=== PATIENT | male | born 1950 | race Caucasian/White ===

== ENCOUNTER 2020-10-05 20:22 | Emergency (ER) | payer MEDICARE ==
[2020-10-05 20:54] LABS: Bacteria/HPF None Seen HPF (None Seen); Bilirubin Negative (Negative); Blood, Urine Negative (Negative); Clarity Clear (Clear); Glucose, Urine (Dipstick) Normal (Negative); Ketone, Urine Negative (Negative); Leukocyte Negative Leu/uL (Negative); Nitrite Negative (Negative); Protein, Urine (Dipstick) 30 mg/dL (Neg-Trace); RBC/HPF 0-3 HPF (0-3); Squamous Epithelial None Seen HPF (0-3); Urobilinogen Normal mg/dL (Less than 2); WBC/HPF 0-3 HPF (0-3)
[2020-10-05] MEDS ORDERED: Acetaminophen 500 MG TAB ONE (21:41)
[2020-10-05 22:33] LABS: #Basophils 0.1 thou/uL (0.0-0.2); #Eosinphils 0.1 thou/uL (0.0-0.7); #Lymphocytes 0.8 thou/uL (1.20-3.40); #Monocytes 0.4 thou/uL (0.11-0.59); #Neutrophils 4.9 thou/uL (1.40-6.50); %Basophils 1.3 % (0.0-1.0); %Lymphocytes 12.8 % (21.0-51.0); %Monocytes 6.5 % (0.0-10.0); %Neutrophils 77.5 % (42.0-75.0); Hemoglobin 8.7 g/dL (14.0-18.0); Mean Corpuscular HGB CONC 35.5 g/dL (32.0-36.0); Mean Corpuscular Hemoglobin 31.4 pg (27.0-31.0); Mean Corpuscular Volume 88.6 fL (78.0-98.0); Mean Platelet Volume 9.5 fL (7.4-10.4); Platelet Count 141 thou/uL (130-400); RBC Distribution Width 21.1 % (11.5-14.5); Red Blood Cell (RBC) Count 2.78 mill/uL (4.70-6.10); White Blood Cell (WBC) Count 6.3 thou/uL (4.8-10.8)
[2020-10-05 22:37] LABS: ALT (SGPT) 38 U/L (8-55); AST (SGOT) 73 U/L (5-34); Albumin 4.3 g/dL (3.4-4.8); Alkaline Phosphatase 58 U/L (40-110); Anion Gap 14 mmol/L (10-20); BUN (Urea Nitrogen) 21 mg/dL (8.4-25.7); Bilirubin, Total 1.1 mg/dL (0.2-1.2); Calc. Creatinine Clearance 0 mL/min (70-130); Calcium 9.4 mg/dL (7.8-10.44); Carbon Dioxide 27 mmol/L (23-31); Chloride 99 mmol/L (98-107); Glucose 195 mg/dL (80-115); Potassium 4.6 mmol/L (3.5-5.1); Protein, Total 7.3 g/dL (5.8-8.1); Sodium 135 mmol/L (136-145)
[2020-10-05 23:19] LABS: SARS-CoV-2 NAA Rapid Test Not Detected (NotDetected)
[2020-10-05] MEDS ORDERED: Benzonatate 100 MG CAP ONE (23:30)
== END 2020-10-05 23:36 | disposition home or self-care (01) ==
LOC: ERS 20:22
DX: R50.9 Fever, unspecified (principal); R05 Cough; I10 Essential (primary) hypertension; D75.81 Myelofibrosis; E78.5 Hyperlipidemia, unspecified; E11.9 Type 2 diabetes mellitus without complications; Z86.16 Personal history of COVID-19
CPT/HCPCS: 0240U; 71045; 80053; 83605; 85025; 87040; 87086; 93005; 36415; 81003; 81015

== ENCOUNTER 2020-11-03 12:32 | Inpatient (IN) | payer MEDICARE ==
[2020-11-03 13:27] LABS: Mean Corpuscular HGB CONC 33.1 g/dL (32.0-36.0); Mean Corpuscular Hemoglobin 29.2 pg (27.0-31.0); Mean Corpuscular Volume 88.5 fL (78.0-98.0); Mean Platelet Volume 8.1 fL (7.4-10.4); Platelet Count 248 thou/uL (130-400); RBC Distribution Width 20.5 % (11.5-14.5); Red Blood Cell (RBC) Count 2.06 mill/uL (4.70-6.10)
[2020-11-03 13:45] LABS: Anisocytosis MODERATE=16-30 cells (100X) (0-5/hpf); Band 8 % (5-11); Eosinophils 2 % (0-10); Lymphocytes 6 % (21-51); MDiff Complete? YES; Metamyelocyte 2 % (0-0); Monocytes 3 % (0-10); Myelocyte 1 % (0-0); Neutrophil 75 % (42-75); Nucleated RBC 8 % (0); Ovalocytes SLIGHT = 2-5 cells (100X) (0-1/hpf); Platelet Morphology Comment Appears Adequate; Poikilocytosis SLIGHT = 6-15 cells (100X) (0-5/hpf); Polychromasia MODERATE = 3-4 cells (100X) (0-2/hpf); Schistocytes SLIGHT = 2-5 cells (100X) (0-1/hpf); Tear Drops SLIGHT = 2-5 cells (100X) (0-1/hpf); White Blood Cell (WBC) Count 6.2 thou/uL (4.8-10.8)
[2020-11-03 13:47] LABS: ALT (SGPT) 34 U/L (8-55); AST (SGOT) 63 U/L (5-34); Albumin 3.4 g/dL (3.4-4.8); Alkaline Phosphatase 58 U/L (40-110); Anion Gap 14 mmol/L (10-20); BUN (Urea Nitrogen) 17 mg/dL (8.4-25.7); Bilirubin, Total 0.9 mg/dL (0.2-1.2); Calc. Creatinine Clearance 0 mL/min (70-130); Calcium 8.8 mg/dL (7.8-10.44); Carbon Dioxide 23 mmol/L (23-31); Chloride 104 mmol/L (98-107); Globulin 2.9 g/dL (2.4-3.5); Glucose 210 mg/dL (80-115); Protein, Total 6.3 g/dL (5.8-8.1); Sodium 137 mmol/L (136-145)
[2020-11-03] MEDS ORDERED: Cefepime 2 GM VIAL ONE (14:41)
[2020-11-03] MEDS ORDERED: VANCOMYCIN 2 GRAM/400 ML BAG 2 GM in Premix Bag 1 BAG IVPB SCH (14:45)
[2020-11-03 14:50] LABS: SARS-CoV-2 NAA Rapid Test Not Detected (NotDetected)
[2020-11-03] MEDS ORDERED: Furosemide 100 MG/10 ML VIAL SLOW IVP SCH (15:45)
[2020-11-03 16:37] LABS: INR-International Normal Ratio 1.3; PTT 40.1 sec (22.9-36.1)
[2020-11-03] MEDS ORDERED: Acetaminophen 325 MG TAB ONE (16:39)
[2020-11-03 16:46] LABS: Iron 35 ug/dL (65-175); Iron Binding Capacity, Total 205 mcg/dL (261-462); Transferrin, Serum 164 mg/dL (163-344)
[2020-11-03 17:11] LABS: Ferritin 185.91 ng/mL (22-322)
[2020-11-03] MEDS ORDERED: Acetaminophen 325 MG TAB PO PRN (17:48)
[2020-11-03] MEDS ORDERED: Acetaminophen 650 MG Suppository PR PRN (17:48)
[2020-11-03] MEDS ORDERED: Ondansetron ODT 4 MG TAB PO PRN (17:48)
[2020-11-03] MEDS ORDERED: HumaLOG 300 UNITS/3 ML VIAL SC PRN (17:48)
[2020-11-03] MEDS ORDERED: Ondansetron PF 4 MG/2 ML Vial IVP PRN (17:48)
[2020-11-03] MEDS ORDERED: Bisacodyl 5 MG TAB PO PRN (17:48)
[2020-11-03] MEDS ORDERED: Dextrose 5% in Water 1,000 ML IV PRN (17:48)
[2020-11-03] MEDS ORDERED: Calcium Carbonate 500 MG ChewTAB PO PRN (17:48)
[2020-11-03] MEDS ORDERED: Senokot S 8.6-50 MG TAB PO PRN (17:48)
[2020-11-03] MEDS ORDERED: Bisacodyl 10 MG SUPP PR PRN (17:48)
[2020-11-03] MEDS ORDERED: Dextrose 50% Abboject 50 ML SYRINGE SLOW IVP PRN (17:48)
[2020-11-03 19:20] LABS: Legionella Urinary Ag Negative (Negative)
[2020-11-03 19:27] LABS: Strep pneumo Urine Ag NEGATIVE (NEGATIVE)
[2020-11-03 19:42] VITALS: BMI 32.1
[2020-11-03] MEDS: glipiZIDE 10 MG TAB PO SCH (20:08)
[2020-11-03] MEDS: hydrALAZINE 25 MG TAB PO SCH (20:08)
[2020-11-03] MEDS: Gabapentin 400 MG CAP PO SCH (20:09)
[2020-11-03] MEDS: Atorvastatin Calcium 20 MG TAB PO SCH (20:09)
[2020-11-03] MEDS: Carvedilol 25 MG TAB PO SCH (20:09)
[2020-11-03] MEDS ORDERED: Furosemide 40 MG/4 ML VIAL SLOW IVP SCH ×2 (20:30→23:30)
[2020-11-03] MEDS: Cefepime 2 GM in Sodium Chloride 0.9% 100 ML IVPB SCH (21:32)
[2020-11-03] MEDS: guaiFENesin 200 MG TAB PO PRN (23:23)
[2020-11-04] MEDS: Cefepime 2 GM in Sodium Chloride 0.9% 100 ML IVPB SCH ×3 (05:04→22:05)
[2020-11-04] MEDS: HumaLOG 300 UNITS/3 ML VIAL SC PRN ×2 (05:07→18:05)
[2020-11-04] MEDS: guaiFENesin 200 MG TAB PO PRN ×2 (05:08→15:32)
[2020-11-04 06:04] LABS: Band 14 % (5-11); Eosinophils 1 % (0-10); Hypochromia SLIGHT = 6-15 cells (100X) (0-5/hpf); Lymphocytes 8 % (21-51); MDiff Complete? YES; Mean Corpuscular HGB CONC 33.9 g/dL (32.0-36.0); Mean Corpuscular Hemoglobin 29.7 pg (27.0-31.0); Mean Corpuscular Volume 87.5 fL (78.0-98.0); Mean Platelet Volume 8.3 fL (7.4-10.4); Monocytes 5 % (0-10); Neutrophil 71 % (42-75); Nucleated RBC 1 % (0); Platelet Count 225 thou/uL (130-400); Platelet Morphology Comment Appears Adequate; RBC Distribution Width 18.4 % (11.5-14.5); Reactive Lymphocytes 1 % (0-10); Red Blood Cell (RBC) Count 2.34 mill/uL (4.70-6.10); White Blood Cell (WBC) Count 6.1 thou/uL (4.8-10.8)
[2020-11-04 06:18] LABS: Anion Gap 13 mmol/L (10-20); BUN (Urea Nitrogen) 17 mg/dL (8.4-25.7); Calc. Creatinine Clearance 88 mL/min (70-130); Calcium 8.8 mg/dL (7.8-10.44); Carbon Dioxide 23 mmol/L (23-31); Chloride 103 mmol/L (98-107); Glucose 143 mg/dL (80-115); Potassium 3.6 mmol/L (3.5-5.1); Sodium 135 mmol/L (136-145)
[2020-11-04] MEDS: hydrALAZINE 25 MG TAB PO SCH ×2 (08:47→20:15)
[2020-11-04] MEDS: metFORMIN 500 MG TAB PO SCH ×2 (08:47→17:18)
[2020-11-04] MEDS: glipiZIDE 10 MG TAB PO SCH ×2 (08:48→20:14)
[2020-11-04] MEDS: Furosemide 40 MG TAB PO SCH (08:48)
[2020-11-04] MEDS: FLUoxetine HCl 20 MG CAP PO SCH (08:48)
[2020-11-04] MEDS: Lisinopril 20 MG TAB PO SCH (08:48)
[2020-11-04] MEDS: Mirtazapine 15 MG TAB PO SCH (08:49)
[2020-11-04] MEDS: Gabapentin 400 MG CAP PO SCH ×3 (08:49→20:14)
[2020-11-04] MEDS: Aripiprazole 15 MG TAB PO SCH (08:51)
[2020-11-04] MEDS: Carvedilol 25 MG TAB PO SCH ×2 (08:51→20:15)
[2020-11-04] MEDS: Cyproheptadine 4 MG TAB PO SCH (08:51)
[2020-11-04] MEDS: Amlodipine 5 MG TAB PO SCH (08:52)
[2020-11-04] MEDS: Enoxaparin Sodium 40 MG/0.4 ML SYRINGE SC SCH (10:35)
[2020-11-04 12:13] LABS: Glucose 142 mg/dL (80-115)
[2020-11-04 17:16] LABS: Glucose 169 mg/dL (80-115)
[2020-11-04] MEDS: Atorvastatin Calcium 20 MG TAB PO SCH (20:15)
[2020-11-04 21:13] LABS: Glucose 143 mg/dL (80-115)
[2020-11-05] MEDS: Cefepime 2 GM in Sodium Chloride 0.9% 100 ML IVPB SCH ×3 (05:15→20:30)
[2020-11-05 06:39] LABS: #Basophils 0.1 thou/uL (0.0-0.2); #Eosinphils 0.2 thou/uL (0.0-0.7); #Lymphocytes 0.8 thou/uL (1.20-3.40); #Monocytes 0.3 thou/uL (0.11-0.59); #Neutrophils 5.4 thou/uL (1.40-6.50); %Basophils 1.3 % (0.0-1.0); %Eosinophils 2.4 % (0.0-10.0); %Lymphocytes 11.5 % (21.0-51.0); %Monocytes 4.1 % (0.0-10.0); %Neutrophils 80.7 % (42.0-75.0); Mean Corpuscular HGB CONC 34.4 g/dL (32.0-36.0); Mean Corpuscular Volume 89.9 fL (78.0-98.0); Mean Platelet Volume 7.9 fL (7.4-10.4); Platelet Count 234 thou/uL (130-400); RBC Distribution Width 18.7 % (11.5-14.5); Red Blood Cell (RBC) Count 2.27 mill/uL (4.70-6.10); White Blood Cell (WBC) Count 6.7 thou/uL (4.8-10.8)
[2020-11-05 07:53] LABS: Glucose 123 mg/dL (80-115)
[2020-11-05] MEDS: glipiZIDE 10 MG TAB PO SCH ×2 (08:44→20:29)
[2020-11-05] MEDS: Gabapentin 400 MG CAP PO SCH ×3 (08:44→20:29)
[2020-11-05] MEDS: FLUoxetine HCl 20 MG CAP PO SCH (08:44)
[2020-11-05] MEDS: hydrALAZINE 25 MG TAB PO SCH ×2 (08:45→20:29)
[2020-11-05] MEDS: Mirtazapine 15 MG TAB PO SCH (08:45)
[2020-11-05] MEDS: Furosemide 40 MG TAB PO SCH (08:45)
[2020-11-05] MEDS: Lisinopril 20 MG TAB PO SCH (08:45)
[2020-11-05] MEDS: Amlodipine 5 MG TAB PO SCH (08:45)
[2020-11-05] MEDS: metFORMIN 500 MG TAB PO SCH ×2 (08:45→18:00)
[2020-11-05] MEDS: Carvedilol 25 MG TAB PO SCH ×2 (08:46→20:29)
[2020-11-05] MEDS: Aripiprazole 15 MG TAB PO SCH (08:46)
[2020-11-05] MEDS: Enoxaparin Sodium 40 MG/0.4 ML SYRINGE SC SCH (08:46)
[2020-11-05] MEDS: Cyproheptadine 4 MG TAB PO SCH (08:46)
[2020-11-05 12:12] LABS: Glucose 168 mg/dL (80-115)
[2020-11-05] MEDS: Guaifenesin DM 100-10/5 ML UDCUP PO PRN (12:19)
[2020-11-05] MEDS: HumaLOG 300 UNITS/3 ML VIAL SC PRN ×2 (12:20→18:03)
[2020-11-05 17:50] LABS: Glucose 161 mg/dL (80-115)
[2020-11-05] MEDS: Atorvastatin Calcium 20 MG TAB PO SCH (20:29)
[2020-11-05 21:47] LABS: Glucose 134 mg/dL (80-115)
[2020-11-06] MEDS: Cefepime 2 GM in Sodium Chloride 0.9% 100 ML IVPB SCH ×3 (04:58→22:57)
[2020-11-06 07:42] LABS: Glucose 136 mg/dL (80-115)
[2020-11-06] MEDS: Aripiprazole 15 MG TAB PO SCH (08:09)
[2020-11-06] MEDS: Cyproheptadine 4 MG TAB PO SCH (08:09)
[2020-11-06] MEDS: Gabapentin 400 MG CAP PO SCH ×3 (08:11→20:03)
[2020-11-06] MEDS: metFORMIN 500 MG TAB PO SCH ×2 (08:12→17:53)
[2020-11-06] MEDS: glipiZIDE 10 MG TAB PO SCH ×2 (08:12→20:04)
[2020-11-06] MEDS: Furosemide 40 MG TAB PO SCH (08:13)
[2020-11-06] MEDS: Carvedilol 25 MG TAB PO SCH ×2 (08:13→20:04)
[2020-11-06] MEDS: Lisinopril 20 MG TAB PO SCH (08:13)
[2020-11-06] MEDS: hydrALAZINE 25 MG TAB PO SCH ×2 (08:14→20:03)
[2020-11-06] MEDS: Amlodipine 5 MG TAB PO SCH (08:16)
[2020-11-06] MEDS: FLUoxetine HCl 20 MG CAP PO SCH (08:16)
[2020-11-06] MEDS: Mirtazapine 15 MG TAB PO SCH (08:17)
[2020-11-06] MEDS: Enoxaparin Sodium 40 MG/0.4 ML SYRINGE SC SCH (08:19)
[2020-11-06] MEDS: Guaifenesin DM 100-10/5 ML UDCUP PO PRN (10:06)
[2020-11-06] MEDS: Guaifenesin DM 100-10/5 ML UDCUP PO SCH ×4 (10:31→22:58)
[2020-11-06 15:38] LABS: Folate,Hemolysate >620.0 ng/mL (Not Estab.); Hematocrit 18.8 % (37.5-51.0); RBC Folate Test Component Greater than 3298 ng/mL (>498)
[2020-11-06] MEDS: Atorvastatin Calcium 20 MG TAB PO SCH (20:04)
[2020-11-07] MEDS: Guaifenesin DM 100-10/5 ML UDCUP PO SCH ×6 (02:19→23:32)
[2020-11-07] MEDS: Cefepime 2 GM in Sodium Chloride 0.9% 100 ML IVPB SCH (05:50)
[2020-11-07 06:17] LABS: #Basophils 0.1 thou/uL (0.0-0.2); #Eosinphils 0.2 thou/uL (0.0-0.7); #Lymphocytes 0.7 thou/uL (1.20-3.40); #Monocytes 0.2 thou/uL (0.11-0.59); #Neutrophils 3.9 thou/uL (1.40-6.50); %Basophils 1.4 % (0.0-1.0); %Eosinophils 4.3 % (0.0-10.0); %Lymphocytes 13.4 % (21.0-51.0); %Monocytes 3.2 % (0.0-10.0); %Neutrophils 77.6 % (42.0-75.0); Hemoglobin 6.3 g/dL (14.0-18.0); Mean Corpuscular HGB CONC 33.3 g/dL (32.0-36.0); Mean Corpuscular Hemoglobin 29.6 pg (27.0-31.0); Mean Corpuscular Volume 89.1 fL (78.0-98.0); Mean Platelet Volume 8.6 fL (7.4-10.4); Platelet Count 190 thou/uL (130-400); RBC Distribution Width 18.7 % (11.5-14.5); Red Blood Cell (RBC) Count 2.12 mill/uL (4.70-6.10)
[2020-11-07] MEDS: FLUoxetine HCl 20 MG CAP PO SCH (08:54)
[2020-11-07] MEDS: Carvedilol 25 MG TAB PO SCH ×2 (08:54→20:23)
[2020-11-07] MEDS: hydrALAZINE 25 MG TAB PO SCH ×2 (08:54→20:22)
[2020-11-07] MEDS: glipiZIDE 10 MG TAB PO SCH ×2 (08:54→20:24)
[2020-11-07] MEDS: Aripiprazole 15 MG TAB PO SCH (08:55)
[2020-11-07] MEDS: Gabapentin 400 MG CAP PO SCH ×3 (08:57→20:24)
[2020-11-07] MEDS: metFORMIN 500 MG TAB PO SCH ×2 (08:58→17:09)
[2020-11-07] MEDS: Furosemide 40 MG TAB PO SCH (08:58)
[2020-11-07] MEDS: Lisinopril 20 MG TAB PO SCH (08:58)
[2020-11-07] MEDS: Mirtazapine 15 MG TAB PO SCH (08:59)
[2020-11-07] MEDS: Cyproheptadine 4 MG TAB PO SCH (08:59)
[2020-11-07] MEDS: Amlodipine 5 MG TAB PO SCH (08:59)
[2020-11-07] MEDS ORDERED: predniSONE 20 MG TAB PO SCH (10:00)
[2020-11-07] MEDS: Enoxaparin Sodium 40 MG/0.4 ML SYRINGE SC SCH (10:53)
[2020-11-07] MEDS: Atorvastatin Calcium 20 MG TAB PO SCH (20:23)
[2020-11-08] MEDS: Guaifenesin DM 100-10/5 ML UDCUP PO SCH ×4 (03:30→15:22)
[2020-11-08] MEDS: HumaLOG 300 UNITS/3 ML VIAL SC PRN (05:34)
[2020-11-08 05:59] LABS: #Basophils 0.1 thou/uL (0.0-0.2); #Eosinphils 0.1 thou/uL (0.0-0.7); #Lymphocytes 0.5 thou/uL (1.20-3.40); #Monocytes 0.2 thou/uL (0.11-0.59); #Neutrophils 4.7 thou/uL (1.40-6.50); %Basophils 1.4 % (0.0-1.0); %Eosinophils 1.9 % (0.0-10.0); %Lymphocytes 8.1 % (21.0-51.0); %Neutrophils 84.6 % (42.0-75.0); Hemoglobin 7.8 g/dL (14.0-18.0); Mean Corpuscular HGB CONC 34.1 g/dL (32.0-36.0); Mean Corpuscular Hemoglobin 30.7 pg (27.0-31.0); Mean Platelet Volume 8.4 fL (7.4-10.4); Platelet Count 214 thou/uL (130-400); RBC Distribution Width 17.8 % (11.5-14.5); Red Blood Cell (RBC) Count 2.54 mill/uL (4.70-6.10); White Blood Cell (WBC) Count 5.6 thou/uL (4.8-10.8)
[2020-11-08 06:09] LABS: Anion Gap 11 mmol/L (10-20); BUN (Urea Nitrogen) 25 mg/dL (8.4-25.7); Calc. Creatinine Clearance 94 mL/min (70-130); Calcium 8.8 mg/dL (7.8-10.44); Carbon Dioxide 25 mmol/L (23-31); Chloride 106 mmol/L (98-107); Glucose 155 mg/dL (80-115); Potassium 3.8 mmol/L (3.5-5.1); Sodium 138 mmol/L (136-145)
[2020-11-08] MEDS ORDERED: predniSONE 20 MG TAB PO SCH (08:00)
[2020-11-08] MEDS: Enoxaparin Sodium 40 MG/0.4 ML SYRINGE SC SCH (08:16)
[2020-11-08] MEDS: hydrALAZINE 25 MG TAB PO SCH (08:17)
[2020-11-08] MEDS: Aripiprazole 15 MG TAB PO SCH (08:17)
[2020-11-08] MEDS: Cyproheptadine 4 MG TAB PO SCH (08:18)
[2020-11-08] MEDS: metFORMIN 500 MG TAB PO SCH (08:18)
[2020-11-08] MEDS: Lisinopril 20 MG TAB PO SCH (08:18)
[2020-11-08] MEDS: FLUoxetine HCl 20 MG CAP PO SCH (08:19)
[2020-11-08] MEDS: Gabapentin 400 MG CAP PO SCH ×2 (08:19→15:22)
[2020-11-08] MEDS: Mirtazapine 15 MG TAB PO SCH (08:20)
[2020-11-08] MEDS: glipiZIDE 10 MG TAB PO SCH (08:21)
[2020-11-08] MEDS: Amlodipine 5 MG TAB PO SCH (08:21)
[2020-11-08] MEDS: Carvedilol 25 MG TAB PO SCH (08:21)
[2020-11-08] MEDS: Furosemide 40 MG TAB PO SCH (08:21)
[2020-11-08 16:50] VITALS: BP 139/56; TEMP 97.9
== END 2020-11-08 15:29 | disposition home or self-care (01) | DRG 193 ==
LOC: ERS 12:32 → T4-A 14:36
PROVIDERS: ADMIT Family Medicine; ATTEND Family Medicine
PROC: 30233N1 Transfusion of Nonautologous Red Blood Cells into Peripheral Vein, Percutaneous Approach (ICD-10-PCS; principal; 2020-11-03)
PROC: 5A09357 Assistance with Respiratory Ventilation, Less than 24 Consecutive Hours, Continuous Positive Airway Pressure (ICD-10-PCS; 2020-11-03)
DX: J12.9 Viral pneumonia, unspecified (principal); J96.01 Acute respiratory failure with hypoxia; D75.81 Myelofibrosis; D62 Acute posthemorrhagic anemia; Z20.822 Contact with and (suspected) exposure to COVID-19; G47.33 Obstructive sleep apnea (adult) (pediatric); E11.9 Type 2 diabetes mellitus without complications; I10 Essential (primary) hypertension; E78.5 Hyperlipidemia, unspecified; R25.1 Tremor, unspecified; Z79.82 Long term (current) use of aspirin; Z79.84 Long term (current) use of oral hypoglycemic drugs; Z79.899 Other long term (current) drug therapy; Z85.830 Personal history of malignant neoplasm of bone; F43.10 Post-traumatic stress disorder, unspecified; D63.8 Anemia in other chronic diseases classified elsewhere
CPT/HCPCS: 0240U; 36415; 36416; 36430; 71045; 71275; 80048; 80053; 82274; 82607; 82728; 82747; 82947; 83540; 83550; 83605; 83880; 84145; 84466; 84484; 85007; 85025; 85027; 85060; 85610; 85730; 86850; 86900; 86901; 87040; 87449; 87633; 87899; 93005; 94640; 96365; 96367; J0692; J1650; J1815; J1940; J1956; J3370; J3490; J7512; J7620; P9016

== ENCOUNTER 2021-09-30 09:18 | Outpatient (CLI) | payer MEDICARE ==
[2021-09-30 21:12] LABS: SARS-CoV-2 PCR by NAA Not Detected (NotDetected)
== END 2021-09-30 09:19 | disposition home or self-care (01) ==
LOC: LABBT 09:18
PROVIDERS: ATTEND Specialist
DX: Z20.822 Contact with and (suspected) exposure to COVID-19 (principal)
CPT/HCPCS: U0003; U0005

== ENCOUNTER 2021-10-03 07:58 | Day surgery (SDC) | payer MEDICARE ==
[2021-10-01 10:40] VITALS: BMI 31.1
[2021-10-03] MEDS ORDERED: ceFAZolin (BATCH) 2 GM/100 ML BAG ONE (08:46)
[2021-10-03] MEDS ORDERED: Acetaminophen 500 MG TAB ONE (08:47)
[2021-10-03] MEDS ORDERED: Ketorolac Tromethamine 30 MG/ML VIAL ONE (08:47)
[2021-10-03] MEDS ORDERED: Fentanyl 100 MCG/2 ML VIAL ONE (10:20)
[2021-10-03] MEDS ORDERED: Lidocaine 1% w/Epinephrine 1:100K 20 ML VIAL ONE (10:22)
[2021-10-03] MEDS ORDERED: Iopamidol 15 ML ONE (10:22)
[2021-10-03] MEDS ORDERED: Bupivacaine PF 0.5% 30 ML VIAL ONE (10:22)
[2021-10-03] MEDS ORDERED: Levofloxacin 500 mg/D5W 100 ml Premix Bag ONE (10:32)
[2021-10-03] MEDS ORDERED: Lidocaine 1% PF 5 ML VIAL ONE (10:42)
[2021-10-03] MEDS ORDERED: ePHEDrine 50 MG/ML VIAL ONE (10:42)
[2021-10-03] MEDS ORDERED: Atropine Sulfate 0.4 mg/1 ml Vial ONE (10:42)
[2021-10-03] MEDS ORDERED: Ondansetron PF 4 MG/2 ML Vial ONE (10:42)
[2021-10-03] MEDS ORDERED: Glycopyrrolate 0.2 MG/ML 5 ML SYRINGE ONE (10:42)
[2021-10-03] MEDS ORDERED: PROPOFOL 200 MG/20 ML VIAL ONE (10:42)
[2021-10-03] MEDS ORDERED: Rocuronium Bromide 10 MG/ML (10ML VIAL) ONE (10:42)
[2021-10-03] MEDS ORDERED: Tamsulosin HCl 0.4 MG CAP ONE (16:28)
== END 2021-10-03 18:08 | disposition home or self-care (01) ==
LOC: SDC 07:58
PROVIDERS: ATTEND Specialist
PROC: 0FT44ZZ Resection of Gallbladder, Percutaneous Endoscopic Approach (ICD-10-PCS; principal; 2021-10-03)
PROC: BF101ZZ Fluoroscopy of Bile Ducts using Low Osmolar Contrast (ICD-10-PCS; 2021-10-03)
DX: K80.12 Calculus of gallbladder with acute and chronic cholecystitis without obstruction (principal); D75.81 Myelofibrosis; R79.89 Other specified abnormal findings of blood chemistry; G20 Parkinson's disease; I10 Essential (primary) hypertension; E11.9 Type 2 diabetes mellitus without complications; Z79.82 Long term (current) use of aspirin; Z79.84 Long term (current) use of oral hypoglycemic drugs; Z79.899 Other long term (current) drug therapy; Z88.5 Allergy status to narcotic agent; Z88.8 Allergy status to other drugs, medicaments and biological substances
CPT/HCPCS: 47532; 47563; C1713; J1610; 88304; J0461; J0690; J1885; J1956; J2405; J2704; J3010; J3490; Q9967; S0020

== ENCOUNTER → 2022-06-17 | Day surgery (SDC) | payer MEDICARE ==
[~2022-06-17] MED LIST: Acetaminophen 500 MG TAB ONE; Acetaminophen 500 MG TAB PO SCH; diphenhydrAMINE 25 MG CAP ONE; diphenhydrAMINE 25 MG CAP PO SCH
[2022-06-17 10:16] VITALS: BP 158/71; TEMP 98.3
== END | disposition home or self-care (01) ==
LOC: ONC/OP 09:37
PROVIDERS: ATTEND Internal Medicine Hematology & Oncology
DX: D64.9 Anemia, unspecified (principal); Z53.9 Procedure and treatment not carried out, unspecified reason; Z88.8 Allergy status to other drugs, medicaments and biological substances
CPT/HCPCS: 80053; 82248; 83615; 84100; 84550; 86850; 86870; 86900; 86901; 86905

== ENCOUNTER 2022-06-18 08:20 | Day surgery (SDC) | payer MEDICARE ==
[2022-06-18] MEDS ORDERED: Acetaminophen 500 MG TAB PO SCH (08:45)
[2022-06-18] MEDS ORDERED: diphenhydrAMINE 25 MG CAP PO SCH (08:45)
[2022-06-18 17:48] VITALS: BP 142/62; TEMP 98.2
== END 2022-06-18 15:08 | disposition home or self-care (01) ==
LOC: ONC/OP 08:20
PROVIDERS: ATTEND Internal Medicine Hematology & Oncology
PROC: 30233N1 Transfusion of Nonautologous Red Blood Cells into Peripheral Vein, Percutaneous Approach (ICD-10-PCS; principal; 2022-06-18)
DX: D64.9 Anemia, unspecified (principal); D69.6 Thrombocytopenia, unspecified; Z88.8 Allergy status to other drugs, medicaments and biological substances
CPT/HCPCS: 36430; 86850; 86870; 86900; 86901; 86905; 86922; P9016

== ENCOUNTER 2022-07-02 08:41 | Day surgery (SDC) | payer MEDICARE ==
[2022-07-02] MEDS ORDERED: diphenhydrAMINE 25 MG CAP ONE (09:25)
[2022-07-02] MEDS ORDERED: Acetaminophen 500 MG TAB ONE (09:25)
[2022-07-02] MEDS ORDERED: diphenhydrAMINE 25 MG CAP PO SCH (09:45)
[2022-07-02] MEDS ORDERED: Acetaminophen 500 MG TAB PO SCH (09:45)
[2022-07-02 16:00] VITALS: BP 166/71; TEMP 98.1
== END 2022-07-02 16:01 | disposition home or self-care (01) ==
LOC: ONC/OP 08:41
PROVIDERS: ATTEND Internal Medicine Hematology & Oncology
PROC: 30233N1 Transfusion of Nonautologous Red Blood Cells into Peripheral Vein, Percutaneous Approach (ICD-10-PCS; principal; 2022-07-02)
DX: D64.9 Anemia, unspecified (principal); D69.6 Thrombocytopenia, unspecified; Z88.8 Allergy status to other drugs, medicaments and biological substances
CPT/HCPCS: 36430; 86850; 86900; 86901; 86922; P9016

== ENCOUNTER 2023-04-20 12:20 | Outpatient (CLI) | payer MEDICARE | END 2023-04-20 12:21 | disposition home or self-care (01) | LOC: BICCT 12:20 | PROVIDERS: ATTEND Internal Medicine Cardiovascular Disease | DX: R09.89 Other specified symptoms and signs involving the circulatory and respiratory systems (principal); I65.23 Occlusion and stenosis of bilateral carotid arteries | CPT/HCPCS: 70498 ==

== ENCOUNTER 2024-05-29 07:50 | Inpatient (IN) | payer MEDICARE, OTHER ==
[2024-05-29] MEDS ORDERED: Nitroglycerin 50 MG/250 ML BOT 250 ML ONE (08:00)
[2024-05-29] MEDS ORDERED: Furosemide 40 MG (4 mL) VIAL ONE (08:00)
[2024-05-29] MEDS ORDERED: fentaNYL 50 mcg/mL 1 mL Vial ONE (08:00)
[2024-05-29 08:08] LABS: Actual Bicarbonate (HCO3a) 24.3 mEq/L (22-28); Analyzer IN Cardio ER; Base Excess (BEa) -2.4 mEq/L (-2.0 to +3.0); CO2 Tension 50.1 mmHg (35.0-45.0); Calcium, Ionized (arterial) 1.12 mmol/L (1.12-1.30); Hematocrit-ABG 32 % (42.0-52.0); Hemoglobin (Hb) 10.8 g/dL (14.0-18.0); O2 Tension (PaO2), arterial 83.9 mmHg (> 70.0); Potassium - ABG Lab 4.39 mmol/L (3.70-5.30); pH, Arterial 7.303 (7.35-7.45)
[2024-05-29 08:13] LABS: ALV-art Gradient 209.975 mmHg (0-20); Puncture Site Left Radial artery
[2024-05-29 08:22] LABS: Hematocrit 30.5 % (42.0-52.0); Hemoglobin 10.6 g/dL (14.0-18.0); Mean Corpuscular HGB CONC 34.8 g/dL (32.0-36.0); Mean Corpuscular Hemoglobin 32.9 pg (27.0-31.0); Mean Corpuscular Volume 94.7 fL (78.0-98.0); Platelet Count 195 10x3/uL (130-400); RBC Distribution Width 18.8 % (11.5-14.5); Red Blood Cell (RBC) Count 3.22 mill/uL (4.70-6.10)
[2024-05-29 08:26] LABS: Bacteria/HPF None Seen HPF (None Seen); Bilirubin Negative (Negative); Blood, Urine 1+ (Negative); CAUTI Indications for Culture Dysuria,urgency,freq; Clarity Clear (Clear); Glucose, Urine (Dipstick) Greater than 1000 mg/dL (Negative); Ketone, Urine Negative (Negative); Leukocyte Negative Leu/uL (Negative); Nitrite Negative (Negative); Protein, Urine (Dipstick) 300 mg/dL (Neg-Trace); RBC/HPF 0-3 HPF (0-3); Specific Gravity, Urine 1.011 (1.002-1.036); Squamous Epithelial None Seen HPF (0-3); Urobilinogen Normal mg/dL (Less than 2)
[2024-05-29 08:27] LABS: Urine Culture Reflex No No
[2024-05-29] MEDS ORDERED: Fentanyl CADD 100 ML IV SCH (08:30)
[2024-05-29 08:34] LABS: ALT (SGPT) 16 U/L (8-55); AST (SGOT) 98 U/L (5-34); Albumin 3.8 g/dL (3.4-4.8); Alkaline Phosphatase 79 U/L (40-110); Anion Gap 16 mmol/L (10-20); BUN (Urea Nitrogen) 29 mg/dL (8.4-25.7); Bilirubin, Total 0.8 mg/dL (0.2-1.2); Calc. Creatinine Clearance 0 mL/min (70-130); Calcium 8.6 mg/dL (7.8-10.44); Carbon Dioxide 24 mmol/L (23-31); Chloride 106 mmol/L (98-107); Estimated GFR 57; Globulin 3.2 g/dL (2.4-3.5); Glucose 203 mg/dL (83-110); Potassium 4.6 mmol/L (3.5-5.1); Sodium 141 mmol/L (136-145)
[2024-05-29 08:38] LABS: Troponin I 0.029 ng/mL (< 0.028)
[2024-05-29 08:55] LABS: Anisocytosis SLIGHT = 6-15 cells HPF (0-5); Band 6 % (5-11); Eosinophils 6 % (0-10); Hypochromia SLIGHT = 6-15 cells HPF (0-5); Lymphocytes 7 % (21-51); Macrocytosis SLIGHT = 6-15 cells HPF (0-5); Monocytes 4 % (0-10); Neutrophil 73 % (42-75); Nucleated RBC (Manual Ct) 12 % (0); Ovalocytes SLIGHT = 2-5 cells HPF (0-1); Platelet Adequacy Comment Platelets Normal; Poikilocytosis SLIGHT = 6-15 cells HPF (0-5); Polychromasia MODERATE = 3-4 cells HPF (0-2); Schistocytes SLIGHT = 2-5 cells HPF (0-1); Tear Drops SLIGHT = 2-5 cells HPF (0-1)
[2024-05-29] MEDS ORDERED: Fentanyl BOLUS 250 ML IVPB PRN (09:30)
[2024-05-29] MEDS ORDERED: Morphine 2 MG/ML VIAL SLOW IVP PRN (09:30)
[2024-05-29] MEDS ORDERED: Lorazepam 2 MG/ML VIAL SLOW IVP PRN (09:30)
[2024-05-29] MEDS ORDERED: Propofol BOLUS 1,000 MG/100 ML VIAL IV PRN (09:30)
[2024-05-29] MEDS ORDERED: Ondansetron PF 4 MG/2 ML Vial IVP PRN (10:01)
[2024-05-29 10:03] LABS: INR-International Normal Ratio 1.1; PTT 27.9 sec (22.9-36.1)
[2024-05-29] MEDS ORDERED: niCARdipine 25 MG in Sodium Chloride 0.9% 250 ML 250 ML IVPB SCH (10:30)
[2024-05-29] MEDS ORDERED: niCARdipine 40MG In NaCl 40 MG/200 ML BAG IVPB SCH (10:30)
[2024-05-29] MEDS: Furosemide 40 MG (4 mL) VIAL SLOW IVP SCH (10:43)
[2024-05-29] MEDS: Propofol 1,000 MG/100 ML VIAL IV PRN (10:43)
[2024-05-29] MEDS: Ventilator Sedation Protocol 1 EACH FS ONE (10:43)
[2024-05-29 12:41] LABS: Influenza A by NAA Not Detected (NotDetected); Influenza B by NAA Not Detected (NotDetected); RSV by NAA Not Detected (NotDetected); SARS-CoV-2 NAA Rapid Test Not Detected (NotDetected)
[2024-05-29] MEDS: Doxycycline 100 MG in Sodium Chloride 0.9% 100 ML IVPB SCH (20:25)
[2024-05-29] MEDS: Fentanyl CADD 100 ML IV SCH (20:58)
[2024-05-30 04:12] LABS: #Basophils 0.03 10x3/uL (0.0-0.2); %Basophils 0.4 % (0.0-1.0); %Eosinophils 0.6 % (0.0-10.0); %Monocytes 6.2 % (0.0-10.0); %Neutrophils 85.6 % (42.0-75.0); Mean Corpuscular HGB CONC 33.3 g/dL (32.0-36.0); Mean Corpuscular Hemoglobin 32.4 pg (27.0-31.0); Mean Corpuscular Volume 97.2 fL (78.0-98.0); Mean Platelet Volume 10.9 fL (7.4-10.4); Platelet Count 141 10x3/uL (130-400); RBC Distribution Width 19.3 % (11.5-14.5); Red Blood Cell (RBC) Count 2.47 mill/uL (4.70-6.10)
[2024-05-30 05:05] LABS: Anion Gap 17 mmol/L (10-20); BUN (Urea Nitrogen) 47 mg/dL (8.4-25.7); Calc. Creatinine Clearance 45 mL/min (70-130); Calcium 8.1 mg/dL (7.8-10.44); Carbon Dioxide 22 mmol/L (23-31); Chloride 105 mmol/L (98-107); Estimated GFR 30; Glucose 170 mg/dL (83-110); Potassium 3.8 mmol/L (3.5-5.1); Sodium 140 mmol/L (136-145)
[2024-05-30] MEDS: Enoxaparin 40 MG (0.4 mL) SYRINGE SC SCH (08:15)
[2024-05-30] MEDS: Pantoprazole 40 MG VIAL IVP SCH (08:16)
[2024-05-30] MEDS: Lactated Ringer's 1,000 ML IV SCH (08:39)
[2024-05-30] MEDS: Carvedilol 25 MG TAB PO SCH ×2 (11:18→20:18)
[2024-05-30] MEDS: hydrALAZINE 25 MG TAB PO SCH ×2 (11:18→14:38)
[2024-05-30] MEDS ORDERED: Dextrose 5% in Water 1,000 ML IV PRN (12:21)
[2024-05-30] MEDS ORDERED: Insulin Regular, Human 100 UNIT/ML 10 ML VIAL SC PRN (12:21)
[2024-05-30] MEDS ORDERED: Dextrose 50% Abboject 50 ML SYRINGE SLOW IVP PRN (12:21)
[2024-05-30] MEDS ORDERED: Glucagon 1 MG/ML KIT IM PRN (12:21)
[2024-05-30] MEDS: Insulin Regular, Human 100 UNIT/ML 10 ML VIAL SC PRN (12:57)
[2024-05-30] MEDS: Lisinopril 20 MG TAB PO SCH (13:04)
[2024-05-30 13:09] VITALS: BMI 32.3
[2024-05-30] MEDS: Amlodipine 5 MG TAB PO SCH ×2 (14:37→20:18)
[2024-05-30] MEDS: Carbidopa/Levodopa 25-100 mg Tablet PO SCH (14:38)
[2024-05-30] MEDS: Gabapentin 300 MG CAP PO SCH (14:38)
[2024-05-30] MEDS ORDERED: hydrALAZINE 25 MG TAB PO SCH (15:00)
[2024-05-30] MEDS: Primidone 50 MG TAB PO SCH (20:18)
[2024-05-30] MEDS ORDERED: Carvedilol 25 MG TAB PO SCH (21:00)
[2024-05-30] MEDS: Labetalol HCl 100 MG/20 ML VIAL SLOW IVP PRN (23:29)
[2024-05-31 05:05] LABS: #Basophils 0.09 10x3/uL (0.0-0.2); %Basophils 0.9 % (0.0-1.0); %Lymphocytes 7.3 % (21.0-51.0); %Monocytes 5.8 % (0.0-10.0); Hematocrit 28.4 % (42.0-52.0); Hemoglobin 9.6 g/dL (14.0-18.0); Mean Corpuscular HGB CONC 33.8 g/dL (32.0-36.0); Mean Corpuscular Hemoglobin 32.4 pg (27.0-31.0); Mean Corpuscular Volume 95.9 fL (78.0-98.0); Mean Platelet Volume 9.9 fL (7.4-10.4); Platelet Count 123 10x3/uL (130-400); RBC Distribution Width 18.7 % (11.5-14.5); Red Blood Cell (RBC) Count 2.96 mill/uL (4.70-6.10)
[2024-05-31 05:21] LABS: Anion Gap 15 mmol/L (10-20); BUN (Urea Nitrogen) 44 mg/dL (8.4-25.7); Calc. Creatinine Clearance 61 mL/min (70-130); Carbon Dioxide 23 mmol/L (23-31); Chloride 107 mmol/L (98-107); Estimated GFR 46; Glucose 163 mg/dL (83-110); Potassium 3.9 mmol/L (3.5-5.1); Sodium 141 mmol/L (136-145)
[2024-05-31] MEDS: hydrALAZINE 20 MG/ML VIAL SLOW IVP PRN (06:21)
[2024-05-31] MEDS: Mirtazapine 15 MG TAB PO SCH (08:04)
[2024-05-31] MEDS: Empagliflozin 25 MG TAB PO SCH (08:04)
[2024-05-31] MEDS: FLUoxetine HCl 20 MG CAP PO SCH (08:05)
[2024-05-31] MEDS: Isosorbide Mononitrate 30 MG ER.TAB PO SCH (08:06)
[2024-05-31] MEDS: Cyproheptadine 4 MG TAB PO SCH (08:07)
[2024-05-31] MEDS ORDERED: Lisinopril 20 MG TAB PO SCH (09:00)
[2024-05-31] MEDS: Lisinopril 20 MG TAB PO SCH (10:19)
[2024-05-31] MEDS: Doxycycline 100 MG in Sodium Chloride 0.9% 100 ML IVPB SCH (20:45)
[2024-06-01 08:11] LABS: ALT (SGPT) 29 U/L (8-55); AST (SGOT) 96 U/L (5-34); Albumin 2.9 g/dL (3.4-4.8); Alkaline Phosphatase 72 U/L (40-110); Anion Gap 16 mmol/L (10-20); BUN (Urea Nitrogen) 44 mg/dL (8.4-25.7); Bilirubin, Total 0.9 mg/dL (0.2-1.2); Calc. Creatinine Clearance 74 mL/min (70-130); Calcium 8.4 mg/dL (7.8-10.44); Carbon Dioxide 21 mmol/L (23-31); Chloride 110 mmol/L (98-107); Estimated GFR 57; Globulin 3.2 g/dL (2.4-3.5); Glucose 183 mg/dL (83-110); Hematocrit 29.8 % (42.0-52.0); Hemoglobin 10.2 g/dL (14.0-18.0); Mean Corpuscular HGB CONC 34.2 g/dL (32.0-36.0); Mean Corpuscular Hemoglobin 32.4 pg (27.0-31.0); Mean Corpuscular Volume 94.6 fL (78.0-98.0); Mean Platelet Volume 11.3 fL (7.4-10.4); Platelet Count 131 10x3/uL (130-400); Potassium 3.9 mmol/L (3.5-5.1); Protein, Total 6.1 g/dL (5.8-8.1); RBC Distribution Width 18.6 % (11.5-14.5); Red Blood Cell (RBC) Count 3.15 mill/uL (4.70-6.10); Sodium 143 mmol/L (136-145)
[2024-06-01] MEDS: Pantoprazole DR 40 MG TAB PO SCH (08:32)
[2024-06-01 09:20] LABS: Band 1 % (5-11); Eosinophils 4 % (0-10); Lymphocytes 3 % (21-51); Macrocytosis SLIGHT = 6-15 cells HPF (0-5); Monocytes 1 % (0-10); Neutrophil 89 % (42-75); Nucleated RBC (Manual Ct) 3 % (0); Ovalocytes SLIGHT = 2-5 cells HPF (0-1); Platelet Adequacy Comment Platelets Normal; Polychromasia MODERATE = 3-4 cells HPF (0-2); Tear Drops SLIGHT = 2-5 cells HPF (0-1)
[2024-06-01] MEDS ORDERED: MAGIC MOUTHWASH 10 ML UDCUP SSP PRN (10:02)
[2024-06-01] MEDS ORDERED: MAGIC MOUTHWASH 10 ML, Compounding Fee 1 SSW PRN (10:12)
[2024-06-01] MEDS: hydrALAZINE 25 MG TAB PO SCH ×2 (11:06→14:23)
[2024-06-01] MEDS: Mirtazapine 15 MG TAB PO SCH (21:57)
[2024-06-02 05:12] LABS: Hemoglobin 7.3 g/dL (14.0-18.0); Mean Corpuscular HGB CONC 34.8 g/dL (32.0-36.0); Mean Corpuscular Hemoglobin 32.6 pg (27.0-31.0); Mean Corpuscular Volume 93.8 fL (78.0-98.0); Mean Platelet Volume 10.2 fL (7.4-10.4); Platelet Count 105 10x3/uL (130-400); RBC Distribution Width 18.6 % (11.5-14.5); Red Blood Cell (RBC) Count 2.24 mill/uL (4.70-6.10)
[2024-06-02 05:18] LABS: ALT (SGPT) 15 U/L (8-55); AST (SGOT) 88 U/L (5-34); Albumin 2.5 g/dL (3.4-4.8); Alkaline Phosphatase 59 U/L (40-110); Anion Gap 14 mmol/L (10-20); BUN (Urea Nitrogen) 48 mg/dL (8.4-25.7); Bilirubin, Total 0.5 mg/dL (0.2-1.2); Calc. Creatinine Clearance 62 mL/min (70-130); Calcium 7.8 mg/dL (7.8-10.44); Carbon Dioxide 22 mmol/L (23-31); Chloride 107 mmol/L (98-107); Estimated GFR 46; Globulin 2.7 g/dL (2.4-3.5); Glucose 184 mg/dL (83-110); Potassium 3.9 mmol/L (3.5-5.1); Protein, Total 5.2 g/dL (5.8-8.1); Sodium 139 mmol/L (136-145)
[2024-06-02 05:51] LABS: Band 5 % (5-11); Eosinophils 7 % (0-10); Lymphocytes 4 % (21-51); Monocytes 1 % (0-10); Neutrophil 77 % (42-75); Platelet Adequacy Comment Platelets Decreased; Polychromasia SLIGHT = 2-3 cells HPF (0-2); Tear Drops SLIGHT = 2-5 cells HPF (0-1)
[2024-06-02 07:15] VITALS: BMI 31.8
[2024-06-02 08:19] LABS: Hematocrit 23.5 % (42.0-52.0); Hemoglobin 8.2 g/dL (14.0-18.0); Mean Corpuscular HGB CONC 34.9 g/dL (32.0-36.0); Mean Corpuscular Hemoglobin 32.3 pg (27.0-31.0); Mean Corpuscular Volume 92.5 fL (78.0-98.0); Mean Platelet Volume 10.5 fL (7.4-10.4); Platelet Count 118 10x3/uL (130-400); RBC Distribution Width 18.4 % (11.5-14.5); Red Blood Cell (RBC) Count 2.54 mill/uL (4.70-6.10)
[2024-06-02] MEDS ORDERED: Lactated Ringer's 1,000 ML IV SCH (08:30)
[2024-06-02 09:40] LABS: Eosinophils 6 % (0-10); Hypersegmented Neutrophil SLIGHT (None Seen); Hypochromia SLIGHT = 6-15 cells HPF (0-5); Lymphocytes 9 % (21-51); Monocytes 1 % (0-10); Myelocyte 1 % (0-0); Neutrophil 78 % (42-75); Ovalocytes SLIGHT = 2-5 cells HPF (0-1); Platelet Adequacy Comment Platelets Decreased; Polychromasia SLIGHT = 2-3 cells HPF (0-2); Tear Drops SLIGHT = 2-5 cells HPF (0-1); Toxic Granulation SLIGHT
[2024-06-02] MEDS: Doxycycline 100 MG CAP PO SCH (21:24)
[2024-06-02] MEDS: EPOETIN ALFA-EPBX (ESRD) 40,000 UNITS/ML VIAL SC SCH (23:28)
[2024-06-03 06:02] LABS: ALT (SGPT) 36 U/L (8-55); AST (SGOT) 117 U/L (5-34); Alkaline Phosphatase 79 U/L (40-110); Anion Gap 16 mmol/L (10-20); BUN (Urea Nitrogen) 42 mg/dL (8.4-25.7); Bilirubin, Total 0.9 mg/dL (0.2-1.2); Calc. Creatinine Clearance 70 mL/min (70-130); Calcium 8.5 mg/dL (7.8-10.44); Carbon Dioxide 19 mmol/L (23-31); Chloride 107 mmol/L (98-107); Estimated GFR 52; Globulin 3.4 g/dL (2.4-3.5); Glucose 223 mg/dL (83-110); Potassium 3.7 mmol/L (3.5-5.1); Protein, Total 6.4 g/dL (5.8-8.1); Sodium 138 mmol/L (136-145)
[2024-06-03 06:33] LABS: Hematocrit 27.4 % (42.0-52.0); Hemoglobin 9.4 g/dL (14.0-18.0); Mean Corpuscular HGB CONC 34.3 g/dL (32.0-36.0); Mean Corpuscular Hemoglobin 31.6 pg (27.0-31.0); Mean Corpuscular Volume 92.3 fL (78.0-98.0); Mean Platelet Volume 11.5 fL (7.4-10.4); Platelet Count 169 10x3/uL (130-400); RBC Distribution Width 18.1 % (11.5-14.5); Red Blood Cell (RBC) Count 2.97 mill/uL (4.70-6.10)
[2024-06-03 07:14] LABS: Band 9 % (5-11); Eosinophils 6 % (0-10); Lymphocytes 8 % (21-51); Metamyelocyte 1 % (0-0); Myelocyte 1 % (0-0); Neutrophil 68 % (42-75); Nucleated RBC (Manual Ct) 2 % (0); Platelet Adequacy Comment Platelets Normal; Polychromasia MODERATE = 3-4 cells HPF (0-2); Reflex for Review?? YES; Smudge Cells 7.1 %; Tear Drops MODERATE= 6-15 cells HPF (0-1)
[2024-06-03] MEDS: Insulin Glargine 30 UNITS/0.3 ML VIAL SC SCH (08:55)
[2024-06-03] MEDS: Tamsulosin HCl 0.4 MG CAP PO SCH (11:27)
[2024-06-03 12:02] LABS: Bilirubin Negative (Negative); Blood, Urine 3+ (Negative); CAUTI Indications for Culture Dysuria,urgency,freq; Clarity Clear (Clear); Glucose, Urine (Dipstick) Greater than 1000 mg/dL (Negative); Ketone, Urine Negative (Negative); Leukocyte Negative Leu/uL (Negative); Nitrite Negative (Negative); Protein, Urine (Dipstick) 100 mg/dL (Neg-Trace); RBC/HPF 21-50 HPF (0-3); Specific Gravity, Urine 1.019 (1.002-1.036); Squamous Epithelial None Seen HPF (0-3); Urobilinogen Normal mg/dL (Less than 2); pH, Urine 5.5 (5.0-9.0)
[2024-06-03 12:03] LABS: Bacteria/HPF Rare-Few HPF (None Seen)
[2024-06-03 12:04] LABS: Urine Culture Reflex Yes Yes
[2024-06-04 05:23] LABS: #Basophils 0.05 10x3/uL (0.0-0.2); %Basophils 0.8 % (0.0-1.0); %Eosinophils 5.3 % (0.0-10.0); %Lymphocytes 12.2 % (21.0-51.0); %Monocytes 6.9 % (0.0-10.0); Hemoglobin 7.3 g/dL (14.0-18.0); Mean Corpuscular HGB CONC 34.8 g/dL (32.0-36.0); Mean Corpuscular Hemoglobin 32.3 pg (27.0-31.0); Mean Corpuscular Volume 92.9 fL (78.0-98.0); Platelet Count 107 10x3/uL (130-400); RBC Distribution Width 18.3 % (11.5-14.5); Red Blood Cell (RBC) Count 2.26 mill/uL (4.70-6.10)
[2024-06-04 06:07] LABS: ALT (SGPT) 13 U/L (8-55); AST (SGOT) 88 U/L (5-34); Albumin 2.5 g/dL (3.4-4.8); Alkaline Phosphatase 61 U/L (40-110); Anion Gap 12 mmol/L (10-20); BUN (Urea Nitrogen) 42 mg/dL (8.4-25.7); Bilirubin, Total 0.5 mg/dL (0.2-1.2); Calc. Creatinine Clearance 80 mL/min (70-130); Calcium 8.1 mg/dL (7.8-10.44); Carbon Dioxide 21 mmol/L (23-31); Chloride 112 mmol/L (98-107); Estimated GFR 59; Globulin 2.9 g/dL (2.4-3.5); Glucose 163 mg/dL (83-110); Potassium 3.8 mmol/L (3.5-5.1); Protein, Total 5.4 g/dL (5.8-8.1); Sodium 141 mmol/L (136-145)
[2024-06-04 09:41] LABS: Hematocrit 22.5 % (42.0-52.0); Hemoglobin 7.9 g/dL (14.0-18.0); Mean Corpuscular HGB CONC 35.1 g/dL (32.0-36.0); Mean Corpuscular Hemoglobin 32.6 pg (27.0-31.0); Mean Platelet Volume 10.7 fL (7.4-10.4); Platelet Count 129 10x3/uL (130-400); RBC Distribution Width 17.8 % (11.5-14.5); Red Blood Cell (RBC) Count 2.42 mill/uL (4.70-6.10)
[2024-06-04 10:50] LABS: #Basophils 0.08 10x3/uL (0.0-0.2); %Eosinophils 4.8 % (0.0-10.0); %Lymphocytes 10.1 % (21.0-51.0); %Monocytes 6.1 % (0.0-10.0); %Neutrophils 73.1 % (42.0-75.0); Ovalocytes SLIGHT = 2-5 cells (100X) (0-1/hpf); Plasma Cells 0 % (0-0); Platelet Adequacy Comment Appears Decreased
[2024-06-04] MEDS: Furosemide 20 MG TAB PO SCH (10:55)
[2024-06-04 17:32] VITALS: BP 152/64; TEMP 98.5
[2024-06-05] MEDS ORDERED: Furosemide 40 MG TAB PO SCH (09:00)
== END 2024-06-04 19:15 | DRG 208 ==
LOC: ERS 07:50 → CCU 09:45 → 2NO 05-31 12:15
PROVIDERS: ADMIT Family Medicine; ATTEND Family Medicine
PROC: 4A033R1 Measurement of Arterial Saturation, Peripheral, Percutaneous Approach (ICD-10-PCS; principal; 2024-05-29)
PROC: 5A1945Z Respiratory Ventilation, 24-96 Consecutive Hours (ICD-10-PCS; 2024-05-29)
DX: J96.01 Acute respiratory failure with hypoxia (principal); J81.0 Acute pulmonary edema; E87.20 Acidosis, unspecified; I16.1 Hypertensive emergency; N17.9 Acute kidney failure, unspecified; D75.81 Myelofibrosis; I13.0 Hypertensive heart and chronic kidney disease with heart failure and stage 1 through stage 4 chronic kidney disease, or unspecified chronic kidney disease; L03.312 Cellulitis of back [any part except buttock and flank]; I50.9 Heart failure, unspecified; E78.5 Hyperlipidemia, unspecified; Z88.8 Allergy status to other drugs, medicaments and biological substances; Z79.899 Other long term (current) drug therapy; Z79.4 Long term (current) use of insulin; G20.A1 Parkinson's disease without dyskinesia, without mention of fluctuations; Z90.49 Acquired absence of other specified parts of digestive tract; Z98.890 Other specified postprocedural states; N18.31 Chronic kidney disease, stage 3a; E11.22 Type 2 diabetes mellitus with diabetic chronic kidney disease; D63.8 Anemia in other chronic diseases classified elsewhere
CPT/HCPCS: 0241U; 36415; 36416; 36556; 36600; 43752; 51702; 70450; 71045; 80048; 80053; 81001; 82805; 83880; 84145; 84484; 85025; 85060; 85610; 85730; 87040; 87070; 87077; 87086; 87186; 87205; 93005; 93306; 94002; 94003; 96365; 96375; 96376; 97139; J0360; J1650; J1815; J1940; J2470; J2704; J3010; J7120